=== PATIENT | female | born 1990 | race African-American/Black ===

== ENCOUNTER 2019-09-09 15:04 | Emergency (ER) | payer BC ==
[~2019-09-09] VITALS: Ht 167.6 cm; Wt 77.1 kg
--- NOTE | 2019-09-09 15:38 | NUR ---
ED Nurse Note: Patient walked in to ER c/o right foot pain. Stated was making her bed and droped edge of her bed on the right foot.
--- NOTE | 2019-09-09 15:50 | NUR ---
ED Nurse Note: xray completed
--- NOTE | 2019-09-09 16:16 | Emergency Room Report ---
History of Present Illness General Chief Complaint: Lower Extremity Injury Source: Patient Present Illness HPI 29-year-old female presents to the emergency department complaining of 6 out of 10 severity localized pain, tenderness and swelling to the dorsum of the right foot x1 week. Patient reports that she was making her bed and she accidentally dropped the foot of the bed on top of her foot. Patient states pain is exacerbated upon weightbearing however she states she is ambulatory. Patient reports wearing shoes that require lacing also exacerbate her symptoms. Denies paresthesias or loss of gross motor movements. Patient reports she went to the gym and when she was running on the treadmill this exacerbated her symptoms as well. Allergies: Coded Allergies: CIPROFLOXACIN (Verified Allergy, Unknown, 09/09/19) Patient History Past Medical History: see triage record Past Surgical History: none Pertinent Family History: none Last Menstrual Period: now Now: No Reviewed Nursing Documentation: PMH: Agreed; PSxH: Agreed Review of Systems All Other Systems: negative except mentioned in HPI Physical Exam Vital Signs Date Time Temp Pulse Resp B/P (MAP) Pulse Ox O2 Delivery O2 Flow Rate FiO2 09/09/19 15:28 98.8 85 16 118/79 (92) 98 Room Air Sp02 EP Interpretation: reviewed, normal General Appearance: no apparent distress, alert, GCS 15, non-toxic Head: normocephalic, atraumatic Eyes: bilateral eye normal inspection, bilateral eye PERRL ENT: hearing grossly normal, normal voice Neck: full range of motion Respiratory: lungs clear, normal breath sounds, speaking full sentences Cardiovascular #1: regular rate, rhythm, no edema, normal capillary refill Cardiovascular #2: 2+ dorsalis pedis (R) Musculoskeletal: normal range of motion, gait/station normal, tender - Dorsum of the right foot, ST swelling noted, no ecchymosis. Neurologic: alert, motor strength/tone normal, oriented x3, sensory intact, responsive, speech normal Psychiatric: judgement/insight normal Skin: normal color Medical Decision Making PA Attestation Dr. Peres is my supervising Physician whom patient management has been discussed with. Diagnostic Impression: Primary Impression: Contusion of foot, right Qualified Codes: S90.31XA - Contusion of right foot, initial encounter ER Course 29-year-old female presents to the emergency department complaining of 6 out of 10 severity localized pain, tenderness and swelling to the dorsum of the right foot x1 week. Patient reports that she was making her bed and she accidentally dropped the foot of the bed on top of her foot. Patient states pain is exacerbated upon weightbearing however she states she is ambulatory. Patient reports wearing shoes that require lacing also exacerbate her symptoms. Denies paresthesias or loss of gross motor movements. Patient reports she went to the gym and when she was running on the treadmill this exacerbated her symptoms as well. Ddx considered but are not limited to Fracture, dislocation, contusion, Sprain/ Strain/Spasm Vital signs: are WNL, pt. is afebrile H&PE are most consistent with musculoskeletal injury will perform imaging to r/ o fractures/dislocations. -- ORDERS: - X-ray Right foot 3 views - negative for fx, Dislocation, or significant soft tissue injury, per preliminary read in ED, and signed by TRINITY Cates , my supervising physician has reviewed, and agrees with my interpretation. ED INTERVENTIONS: - Tylenol PO -Josh wrap applied to the right foot by geologic technician. Pt. remains neurovascularly intact. DISCHARGE: At this time pt. is stable for d/c to home. Will provide printed patient care instructions, and any necessary prescriptions. Care plan and follow up instructions have been discussed with the patient prior to discharge. Other X-Ray Diagnostic Results Other X-Ray Diagnostic Results : X-Ray ordered: Right Foot # of Views/Limited Vs Complete: 3 View Indication: Pain EP Interpretation: Yes TRINITY Xray: Interpretation reviewed, by supervising MD, and agrees with findings. Interpretation: no dislocation, no soft tissue swelling, no fractures Impression: No acute disease Electronically Signed by: Nasrin Cates PA-C Last Vital Signs Date Time Temp Pulse Resp B/P (MAP) Pulse Ox O2 Delivery O2 Flow Rate FiO2 09/09/19 15:28 98.8 85 16 118/79 (92) 98 Room Air Status: improved Disposition: HOME, SELF-CARE Condition: Stable Referrals: Renee Benson [facility] Departure Forms: Return to Work Return to Work Date: Sep 10, 2019 Work Restrictions: No Heavy Lifting, No Prolonged Standing Other Restrictions: allow comfortable shoes to be worn. Return to Full Activity: Sep 13, 2019 Patient Instructions: Foot Contusion Additional Instructions: Take medications as directed. Follow up with a Primary Care Provider in 3-5 days, even if your symptoms have resolved. --Please review list of primary care clinics, if you do not already have a primary care provider Return sooner to ED if new symptoms occur, or current symptoms become worse. - Please note that this Emergency Department Report was dictated using [employer] dynamics engineer technology software, occasionally this can lead to erroneous entry secondary to interpretation by the dictation equipment. Nasrin Cates Sep 09, 2019 16:15
[2019-09-09] MEDS ORDERED: TYLENOL EXTRA500 MG ORAL (16:17)
[2019-09-09 16:25] VITALS: BP 112/82
--- NOTE | 2019-09-09 16:26 | NUR ---
ER DISCHARGE NOTE: Patient is cleared to be discharged per ERMD, pt is aox4, on room air, with stable vital signs. pt was given dc and prescription instructions, pt was able to verbalize understanding, pt id band removed, foot rosa elena wrapped. pt is able to ambulate with steady gait. pt took all belongings.
--- NOTE | 2019-09-09 16:27 | Diagnostic Imaging Report ---
Indication: Dorsal pain, injury, object fell on foot Technique: 3 views right foot Comparison: none Findings: No acute fractures. No dislocations. The joint spaces are preserved. Impression: Negative
== END 2019-09-09 16:25 | disposition home or self-care (01) ==
LOC: EMR 15:45
DX: S90.31XA Contusion of right foot, initial encounter (principal); W22.8XXA Striking against or struck by other objects, initial encounter; Y93.9 Activity, unspecified; Y92.9 Unspecified place or not applicable; Z88.8 Allergy status to other drugs, medicaments and biological substances
CPT/HCPCS: 99283